=== PATIENT | male | born 1990 | race Caucasian/White ===

== ENCOUNTER 2018-12-09 12:47 | Emergency (ER) | payer OTHER ==
[~2018-12-09] VITALS: Ht 165.1 cm; Wt 59.0 kg
[2018-12-09] MEDS ORDERED: Amoxicillin875 MG PO (14:07)
[2018-12-09] MEDS ORDERED: Percocet 5-3251 EACH PO (14:07)
== END 2018-12-09 14:16 | disposition home or self-care (01) ==
LOC: EDSEX 12:47 → ER 12:47
DX: S02.40DA Maxillary fracture, left side, initial encounter for closed fracture (principal); S05.12XA Contusion of eyeball and orbital tissues, left eye, initial encounter; F17.210 Nicotine dependence, cigarettes, uncomplicated; W01.10XA Fall on same level from slipping, tripping and stumbling with subsequent striking against unspecified object, initial encounter
CPT/HCPCS: 70486; 90471; 90714; 96372; 99284-25; J1885